=== PATIENT | male | born 1975 | race Caucasian/White ===

== ENCOUNTER 2018-12-27 22:59 | Emergency (ER) | payer BC ==
[2018-12-27] MEDS ORDERED: Ketorolac 60 MG/2 ML SDV IM ONE (23:08)
[2018-12-27] MEDS ORDERED: Aspirin 81 MG Tab.Chew PO ONE (23:08)
--- NOTE | 2018-12-27 23:11 | EDM.PDOC ---
ED HPI GENERAL MEDICAL PROBLEM - General Chief Complaint: Chest Pain Stated Complaint: PT HAS CHEST PAINS Time Seen by Provider: 12/27/18 23:03 - History of Present Illness INITIAL COMMENTS - FREE TEXT/NARRATIVE: HISTORY AND PHYSICAL: History of present illness: The patient is a 43-year-old male with a history of hypertension for which he takes Toprol-XL but has not had it for the last 2-3 weeks and presents with chest pain to the left of the sternum and the upper part of his chest wall that started yesterday. He denies any recent upper respiratory symptoms cough runny nose sore throat or shortness of breath and has had no trauma to the area. The pain does not radiate but sits in that location and it is worse with certain movements or if he touches it. 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 He is very active at work and normally does not have discomfort or issues with activities. He was able to sleep during the day today and when he woke up the pain was still there. He took some Tylenol and it did not help so is here for evaluation. The patient has no significant family history. In the ED he has no associated symptoms of nausea vomiting abdominal pain or shortness of breath. He describes the pain as a sharp pain which is localized to the area he is pointing at Review of systems: As per history of present illness and below otherwise all systems reviewed and negative. Past medical history: As per history of present illness and as reviewed below otherwise noncontributory. Surgical history: As per history of present illness and as reviewed below otherwise noncontributory. Social history: No reported history of drug or alcohol abuse. Family history: As per history of present illness and as reviewed below otherwise noncontributory. Physical exam: HEENT: Atraumatic, normocephalic, negative for conjunctival pallor or scleral icterus, mucous membranes moist, throat clear, neck supple, nontender, trachea midline. Lungs: Clear to auscultation, breath sounds equal bilaterally, chest with tenderness to palpation at the left costochondral margin without defects deformities or crepitus. There is no wheezing stridor or work of breathing Heart: S1S2, regular rate and rhythm no overt murmurs Abdomen: Soft, nondistended, nontender. Negative for masses or hepatosplenomegaly. NABS Pelvis: Stable nontender. Genitourinary: Deferred. Rectal: Deferred. Extremities: Atraumatic, negative for cords or calf pain. Neurovascular unremarkable. No pedal edema Neuro: Awake, alert, oriented. Cranial nerves II through XII unremarkable. Cerebellum unremarkable. Motor and sensory unremarkable throughout. Exam nonfocal. Diagnostics: EKG chest x-ray CBC CMP troponin Therapeutics: Toradol aspirin Patient is feeling improved and is advised for close follow-up. Impression: Left chest wall pain, reproducible, costochondritis Definitive disposition and diagnosis as appropriate pending reevaluation and review of above. Chest Pain Score (Numeric/FACES): 8 - Related Data Allergies Allergy/AdvReac Type Severity Reaction Status Date / Time No Known Allergies Allergy Verified 12/27/18 23:03 Home Meds: Home Meds Metoprolol Succinate [Toprol XL 50mg] 50 mg PO DAILY 12/27/18 [History] ED ROS GENERAL - Review of Systems Review Of Systems: ROS reveals no pertinent complaints other than HPI. ED EXAM, GENERAL - Physical Exam Exam: See Below (See dictation) Course - Vital Signs Last Recorded V/S: Last Vital Signs Temp 36.6 C 12/27/18 23:01 Pulse 86 12/27/18 23:01 Resp 20 12/27/18 23:01 BP 143/97 H 12/27/18 23:01 Pulse Ox 99 12/27/18 23:01 - Orders/Labs/Meds Orders: Active Orders 24 hr Category Date Time Status EKG Documentation Completion [RC] STAT Care 12/27/18 23:08 Active Labs: Laboratory Tests 12/27/18 12/27/18 Range/Units 23:18 23:18 WBC 8.92 (4.0-11.0) K/uL RBC 4.89 (4.50-5.90) M/uL Hgb 15.2 (13.0-17.0) g/dL Hct 42.9 (38.0-50.0) % MCV 87.7 (80.0-98.0) fL MCH 31.1 (27.0-32.0) pg MCHC 35.4 (31.0-37.0) g/dL RDW Std Deviation 41.8 (28.0-62.0) fl RDW Coeff of Gómez 13 (11.0-15.0) % Plt Count 284 (150-400) K/uL MPV 10.10 (7.40-12.00) fL Neut % (Auto) 52.8 (48.0-80.0) % Lymph % (Auto) 31.4 (16.0-40.0) % [place] % (Auto) 12.0 (0.0-15.0) % Eos % (Auto) 3.5 (0.0-7.0) % Baso % (Auto) 0.3 (0.0-1.5) % Neut # (Auto) 4.7 (1.4-5.7) K/uL Lymph # (Auto) 2.8 H (0.6-2.4) K/uL [place] # (Auto) 1.1 H (0.0-0.8) K/uL Eos # (Auto) 0.3 (0.0-0.7) K/uL Baso # (Auto) 0.0 (0.0-0.1) K/uL Nucleated RBC % 0.0 /100WBC Nucleated RBCs # 0 K/uL Sodium 139 (136-148) mmol/L Potassium 3.9 (3.5-5.1) mmol/L Chloride 105 (98-107) mmol/L Carbon Dioxide 23.6 (21.0-32.0) mmol/L BUN 12 (7.0-18.0) mg/dL Creatinine 1.0 (0.8-1.3) mg/dL Est Cr Clr Drug Dosing 103.54 mL/min Estimated GFR (MDRD) > 60.0 ml/min Glucose 115 H (74-106) mg/dL Calcium 8.8 (8.5-10.1) mg/dL Total Bilirubin 0.3 (0.2-1.0) mg/dL AST 21 (15-37) IU/L ALT 39 (14-63) IU/L Alkaline Phosphatase 56 (46-116) U/L Troponin I < 0.050 (0.000-0.056) ng/mL Total Protein 7.3 (6.4-8.2) g/dL Albumin 3.6 (3.4-5.0) g/dL Globulin 3.7 (2.6-4.0) g/dL Albumin/Globulin Ratio 1.0 (0.9-1.6) Meds: Medications Discontinued Medications Generic Name Dose Route Start Last Admin Trade Name Kathe PRN Reason Stop Dose Admin Aspirin 324 mg 12/27/18 23:08 12/27/18 23:16 Aspirin PO 12/27/18 23:09 324 mg ONETIME ONE Administration Ketorolac Tromethamine 60 mg 12/27/18 23:08 12/27/18 23:17 Toradol IM 12/27/18 23:09 60 mg ONETIME ONE Administration Departure - Departure Time of Disposition: 00:27 Disposition: Home, Self-Care 01 Condition: Good Clinical Impression: Chest wall pain - Discharge Information Forms: ED Department Discharge Additional Instructions: The following information is given to patients seen in the emergency department who are being discharged to home. This information is to outline your options for follow-up care. We provide all patients seen in our emergency department with a follow-up referral. The need for follow-up, as well as the timing and circumstances, are variable depending upon the specifics of your emergency department visit. If you don't have a primary care physician on staff, we will provide you with a referral. We always advise you to contact your personal physician following an emergency department visit to inform them of the circumstance of the visit and for follow-up with them and/or the need for any referrals to a consulting specialist. The emergency department will also refer you to a specialist when appropriate. This referral assures that you have the opportunity for followup care with a specialist. All of these measure are taken in an effort to provide you with optimal care, which includes your followup. Under all circumstances we always encourage you to contact your private physician who remains a resource for coordinating your care. When calling for followup care, please make the office aware that this follow-up is from your recent emergency room visit. If for any reason you are refused follow-up, please contact the [facility] emergency department at and ask to speak to the emergency department charge nurse. [facility] Primary care- Internal Medicine and Family [address] [address] Please use [id number] ibuprofen/Motrin for pain as we discussed and try to ice areas after activities and work. Please resume taking your Toprol-XL as a given you a small refill to restart. Please call and schedule a follow-up appointment in the clinic and return to ER as needed and as discussed - My Orders Last 24 Hours: My Active Orders 12/27/18 23:08 EKG Documentation Completion [RC] STAT - Assessment/Plan Last 24 Hours: My Active Orders 12/27/18 23:08 EKG Documentation Completion [RC] STAT
[2018-12-27 23:58] LABS: CHLORIDE,CL 105 mmol/L (98-107); SODIUM,NA 139 mmol/L (136-148)
--- NOTE | 2018-12-28 00:24 | CR ---
INDICATION: Chest pain COMPARISON: None available. FINDINGS: An erect single view of the chest was obtained at 23 23 hours. The lungs are clear. No focal or diffuse infiltrates are present. Incidental note is made of an azygos fissure. The heart is normal in size. The mediastinum is normal in appearance. The osseous structures are normal in appearance for the patient`s age. IMPRESSION: Normal chest single view. Dictated by Tyler Marsh MD @ Dec 28 2018 12:22AM Signed by Dr. Tyler Marsh @ Dec 28 2018 12:23AM
== END 2018-12-28 00:04 | disposition home or self-care (01) ==
LOC: MW.ED 22:59
DX: M94.0 Chondrocostal junction syndrome [Tietze] (principal); Z79.899 Other long term (current) drug therapy
CPT/HCPCS: 36415; 71045; 80053; 84484; 85025; 93005; 96372; 99285; A9270; J1885; 99282

== ENCOUNTER 2018-12-30 22:49 | Observation (INO) | payer BC ==
[2018-12-30] MEDS ORDERED: Sodium Chloride 0.9% 10 ML Syringe FLUSH PRN (23:15)
[2018-12-30] MEDS ORDERED: Ketorolac 30 MG/ML SDV IVPUSH ONE (23:15)
[2018-12-30] MEDS ORDERED: Sodium Chloride 0.9% 2.5 ML Syringe FLUSH PRN (23:15)
[2018-12-30] MEDS ORDERED: Ondansetron 4 MG/2 ML SDV IVPUSH ONE (23:15)
[2018-12-30] MEDS ORDERED: Sodium Chloride 0.9% 1,000 ML IV ONE (23:15)
--- NOTE | 2018-12-30 23:17 | EDM.PDOC ---
ED HPI GENERAL MEDICAL PROBLEM - General Chief Complaint: Back Pain or Injury Stated Complaint: PT HAS BACK AND STOMACH PAIN Time Seen by Provider: 12/30/18 23:10 - History of Present Illness INITIAL COMMENTS - FREE TEXT/NARRATIVE: HISTORY AND PHYSICAL: History of present illness: Patient is a 43-year-old male with no significant GI or history who presents with complaints of bilateral lower back pain that started yesterday and this morning waking up and having the back pain still present but then radiating to bilateral lower abdominal area. He has not had any difficulty initiating a stream urgency frequency dysuria or hematuria and no upper flank pain. He had nausea and vomiting throughout the day and was not able to keep much down but did have an appetite. He did not take his temperature or have a fever that he is aware of and has no chest pain shortness of breath or upper abdominal pain. He says the pain radiates to his testicles but he has not noticed any stress testicular masses or swelling. The patient has no weakness in his legs nor does the back pain or abdominal pain radiate to his legs and has no neurosensory changes in his legs. He has no upper back pain and no midline back pain. The patient took nothing for this discomfort prior to coming here and nothing for the nausea and vomiting. He has had normal bowel movements without diarrhea black or bloody stools. Review of systems: As per history of present illness and below otherwise all systems reviewed and negative. Past medical history: As per history of present illness and as reviewed below otherwise noncontributory. Surgical history: As per history of present illness and as reviewed below otherwise noncontributory. Social history: No reported history of drug or alcohol abuse. Family history: As per history of present illness and as reviewed below otherwise noncontributory. Physical exam: General: Well-developed well-nourished man who is nontoxic and moves very easily in the ED without distress. Vital signs are noted by me HEENT: Atraumatic, normocephalic, pupils reactive, negative for conjunctival pallor or scleral icterus, mucous membranes moist, throat clear, neck supple, nontender, trachea midline. Lungs: Clear to auscultation, breath sounds equal bilaterally, chest nontender. Heart: S1S2, regular, negative for clicks, rubs, or JVD. Abdomen: Soft, nondistended some mild tenderness in the lower abdomen throughout without rebound or guarding and bowel sounds are hypoactive. There is tympany on percussion of the upper abdomen without tenderness. Negative for masses or hepatosplenomegaly. Negative for costovertebral tenderness. Pelvis: Stable nontender. Genitourinary: Normal male with descended testicles bilaterally without any evidence of masses tenderness or swelling Rectal: Deferred. Extremities: Atraumatic, negative for cords or calf pain. Neurovascular unremarkable. Full range of motion of all extremities without defects or deficits Neuro: Awake, alert, oriented. Cranial nerves II through XII unremarkable. Cerebellum unremarkable. Motor and sensory unremarkable throughout. Exam nonfocal. Back: There are no midline step-offs in his defects of the thoracic or lumbar spine no CVA tenderness and no posterior pelvis tenderness. On palpation of the paraspinal musculature I cannot reproduce the pain. Diagnostics: CBC CMP amylase lipase UA with reflex CT scan abdomen and pelvis Therapeutics: IV fluids Toradol Zofran Patient is resting comfortably and says his nausea is much improved and his pain is also improved. I discussed all testing results with him and significant other at bedside and I discussed the CT scan findings and labs with Dr. Arguello at 1 AM as well as with Dr. Worley our hospitalist at 1:[address] scan is abnormal with the free fluid Dr. Arguello recommends observation and he will be on consult if Dr. Worley would like that. Dr. Worley states he would like Dr. Arguello on consult and he will admit him as an observation. I've written for maintenance IV fluids and the patient is agreeable they're both aware of the lab abnormalities and the patient's clinical state and presentation Impression: Lower back and lower abdominal pain with abnormal CT etiology unclear, paracentral disc disease L4-L5 stable, diminished renal function etiology unclear Definitive disposition and diagnosis as appropriate pending reevaluation and review of above. low back;low abdomen Pain Score (Numeric/FACES): 6 - Related Data Allergies Allergy/AdvReac Type Severity Reaction Status Date / Time No Known Allergies Allergy Verified 12/30/18 23:08 Home Meds: Home Meds Metoprolol Succinate [Toprol XL 50mg] 50 mg PO DAILY 12/27/18 [History] Past Medical History Cardiovascular History: Reports: Hypertension Neurological History: Reports: Concussion Psychiatric History: Reports: Panic Attack - Infectious Disease History Infectious Disease History: Reports: Chicken Pox Social & Family History - Family History Family Medical History: Noncontributory - Tobacco Use Smoking Status *Q: Current Every Day Smoker Years of Tobacco use: 20 Packs/Tins Daily: 1 - Recreational Drug Use Recreational Drug Use: No ED ROS GENERAL - Review of Systems Review Of Systems: ROS reveals no pertinent complaints other than HPI. ED EXAM, GENERAL - Physical Exam Exam: See Below (see Dictation) Course - Vital Signs Last Recorded V/S: Last Vital Signs Temp 37.1 C 12/30/18 23:00 Pulse 67 12/30/18 23:00 Resp 18 12/30/18 23:00 BP 178/104 H 12/30/18 23:00 Pulse Ox 96 12/30/18 23:00 - Orders/Labs/Meds Orders: Active Orders 24 hr Category Date Time Status Patient Status [ADT] Stat ADT 12/31/18 01:15 Ordered Notify Provider Consults [RC] ASDIRECTED Care 12/31/18 01:15 Ordered Consult to Physician [CONS] Stat Cons 12/31/18 01:15 Ordered Sodium Chloride 0.9% @ 150 MLS/HR (1,000ml) Med 12/31/18 01:15 Ordered Sodium Chloride 0.9% [Normal Saline] 1,000 ml IV ASDIRECTED Sodium Chloride 0.9% [Saline Flush] Med 12/30/18 23:15 Active 10 ml FLUSH ASDIRECTED PRN Sodium Chloride 0.9% [Saline Flush] Med 12/30/18 23:15 Active 2.5 ml FLUSH ASDIRECTED PRN Saline Lock Insert [OM.PC] Stat Oth 12/30/18 23:14 Ordered Medication Orders Sodium Chloride (Saline Flush) 10 ml FLUSH ASDIRECTED PRN PRN Reason: Keep Vein Open Sodium Chloride (Saline Flush) 2.5 ml FLUSH ASDIRECTED PRN PRN Reason: Keep Vein Open Labs: Laboratory Tests 12/30/18 12/30/18 12/30/18 Range/Units 22:23 23:22 23:22 WBC 12.94 H (4.0-11.0) K/uL RBC 4.96 (4.50-5.90) M/uL Hgb 15.3 (13.0-17.0) g/dL Hct 43.6 (38.0-50.0) % MCV 87.9 (80.0-98.0) fL MCH 30.8 (27.0-32.0) pg MCHC 35.1 (31.0-37.0) g/dL RDW Std Deviation 41.3 (28.0-62.0) fl RDW Coeff of Gómez 13 (11.0-15.0) % Plt Count 274 (150-400) K/uL MPV 10.50 (7.40-12.00) fL Neut % (Auto) 80.3 H (48.0-80.0) % Lymph % (Auto) 7.7 L (16.0-40.0) % [place] % (Auto) 11.7 (0.0-15.0) % Eos % (Auto) 0.1 (0.0-7.0) % Baso % (Auto) 0.2 (0.0-1.5) % Neut # (Auto) 10.4 H (1.4-5.7) K/uL Lymph # (Auto) 1.0 (0.6-2.4) K/uL [place] # (Auto) 1.5 H (0.0-0.8) K/uL Eos # (Auto) 0.0 (0.0-0.7) K/uL Baso # (Auto) 0.0 (0.0-0.1) K/uL Nucleated RBC % 0.0 /100WBC Nucleated RBCs # 0 K/uL Sodium 144 (136-148) mmol/L Potassium 3.7 (3.5-5.1) mmol/L Chloride 106 (98-107) mmol/L Carbon Dioxide 24.7 (21.0-32.0) mmol/L BUN 14 (7.0-18.0) mg/dL Creatinine 2.4 H (0.8-1.3) mg/dL Est Cr Clr Drug Dosing 43.14 mL/min Estimated GFR (MDRD) 30.0 ml/min Glucose 124 H (74-106) mg/dL Calcium 8.8 (8.5-10.1) mg/dL Total Bilirubin 0.5 (0.2-1.0) mg/dL AST 22 (15-37) IU/L ALT 27 (14-63) IU/L Alkaline Phosphatase 53 (46-116) U/L Total Protein 7.3 (6.4-8.2) g/dL Albumin 3.4 (3.4-5.0) g/dL Globulin 3.9 (2.6-4.0) g/dL Albumin/Globulin Ratio 0.9 (0.9-1.6) Amylase 30 (25-115) U/L Lipase 95 (73-393) U/L Urine Color YELLOW Urine Appearance CLEAR Urine pH 6.0 (5.0-8.0) Ur Specific [place] 1.010 (1.001-1.035) Urine Protein 100 H (NEGATIVE) mg/dL Urine Glucose (UA) NEGATIVE (NEGATIVE) mg/dL Urine Ketones NEGATIVE (NEGATIVE) mg/dL Urine Occult Blood SMALL H (NEGATIVE) Urine Nitrite NEGATIVE (NEGATIVE) Urine Bilirubin NEGATIVE (NEGATIVE) Urine Urobilinogen 0.2 (<2.0) EU/dL Ur Leukocyte Esterase NEGATIVE (NEGATIVE) Urine RBC 0-2 (0-2/HPF) Urine WBC 0-3 (0-5/HPF) Ur Epithelial Cells RARE (NONE-FEW) Urine Bacteria FEW (NEGATIVE) Urine Mucus LIGHT (NONE-MOD) Meds: Medications Generic Name Dose Route Start Last Admin Trade Name Freq PRN Reason Stop Dose Admin Sodium Chloride 10 ml 12/30/18 23:15 Saline Flush FLUSH ASDIRECTED PRN Keep Vein Open Sodium Chloride 2.5 ml 12/30/18 23:15 Saline Flush FLUSH ASDIRECTED PRN Keep Vein Open Discontinued Medications Generic Name Dose Route Start Last Admin Trade Name Freq PRN Reason Stop Dose Admin Sodium Chloride 1,000 mls @ 999 mls/hr 12/30/18 23:15 12/30/18 23:24 Normal Saline IV 12/31/18 00:15 999 mls/hr STAT ONE Administration Ketorolac Tromethamine 30 mg 12/30/18 23:15 12/30/18 23:26 Toradol IVPUSH 12/30/18 23:16 30 mg ONETIME ONE Administration Ondansetron HCl 4 mg 12/30/18 23:15 12/30/18 23:25 Zofran IVPUSH 12/30/18 23:16 4 mg ONETIME ONE Administration Departure - Departure Time of Disposition: 01:18 Disposition: Refer to Observation Condition: Good Clinical Impression: Abnormal CT scan, Decreased renal function Abdominal pain Qualifiers: Abdominal location: lower abdomen, unspecified Qualified Code(s): R10.30 - Lower abdominal pain, unspecified - Discharge Information Referrals: PCP,None [Primary Care Provider] - Forms: ED Department Discharge - My Orders Last 24 Hours: My Active Orders 12/30/18 23:14 Saline Lock Insert [OM.PC] Stat 12/30/18 23:15 Sodium Chloride 0.9% [Saline Flush] 10 ml FLUSH ASDIRECTED PRN Sodium Chloride 0.9% [Saline Flush] 2.5 ml FLUSH ASDIRECTED PRN 12/31/18 01:15 Patient Status [ADT] Stat Notify Provider Consults [RC] ASDIRECTED Consult to Physician [CONS] Stat Sodium Chloride 0.9% @ 150 MLS/HR (1,000ml) Sodium Chloride 0.9% [Normal Saline ] 1,000 ml IV ASDIRECTED - Assessment/Plan Last 24 Hours: My Active Orders 12/30/18 23:14 Saline Lock Insert [OM.PC] Stat 12/30/18 23:15 Sodium Chloride 0.9% [Saline Flush] 10 ml FLUSH ASDIRECTED PRN Sodium Chloride 0.9% [Saline Flush] 2.5 ml FLUSH ASDIRECTED PRN 12/31/18 01:15 Patient Status [ADT] Stat Notify Provider Consults [RC] ASDIRECTED Consult to Physician [CONS] Stat Sodium Chloride 0.9% @ 150 MLS/HR (1,000ml) Sodium Chloride 0.9% [Normal Saline ] 1,000 ml IV ASDIRECTED
--- NOTE | 2018-12-31 00:59 | CT ---
INDICATION: Low back pain. Nausea and vomiting TECHNIQUE: CT abdomen and pelvis without contrast. COMPARISON: None available FINDINGS: Lower chest: A calcified right lower lobe granuloma. Liver: Unremarkable. Spleen: Upper limits of normal splenic size. A punctate calcified splenic granuloma. Pancreas: Unremarkable. Gallbladder and bile ducts: Mildly increased attenuation within the gallbladder could represent sludge. Adrenal glands: Unremarkable. Kidneys: No hydronephrosis or discrete urolithiasis. Apparent slight urothelial prominence at the UPJ`s. GI tract: Unremarkable. Appendix is normal. Vascular structures: Unremarkable. Lymph nodes: Unremarkable. Miscellaneous: Small to moderate pelvic free fluid. No free air. Pelvic Organs: Unremarkable. Bones: A left paracentral disc protrusion at L4-5. IMPRESSION: No obstructive uropathy or discrete urolithiasis. Apparent slight urothelial prominence at the UPJ`s. Correlate with urinalysis to exclude a UTI. No evidence of appendicitis, diverticulitis or bowel obstruction. Small to moderate pelvic free fluid. A left paracentral disc protrusion at L4-5. Old granulomatous disease. Dictated by Mirza John MD @ 12/31/2018 12:57:52 AM Please note that all CT scans at this facility use dose modulation, iterative reconstruction, and/or weight-based dosing when appropriate to reduce radiation dose to as low as reasonably achievable. Dictated by: Mirza John MD @ 12/31/2018 00:58:00 (Electronically Signed)
[2018-12-31] MEDS ORDERED: Sodium Chloride 0.9% 1,000 ML IV SCH (01:15)
[2018-12-31] MEDS ORDERED: Sodium Chloride 0.9% 2.5 ML Syringe FLUSH PRN (02:02)
[2018-12-31] MEDS ORDERED: Sodium Chloride 0.9% 10 ML Syringe FLUSH PRN (02:02)
[2018-12-31] MEDS ORDERED: Morphine 2 MG/ML Syringe IVPUSH PRN (02:03)
[2018-12-31] MEDS ORDERED: Acetaminophen 325 MG Tab PO PRN (02:03)
[2018-12-31] MEDS ORDERED: oxyCODONE 5 MG Tab PO PRN (02:03)
[2018-12-31] MEDS ORDERED: Ondansetron 4 MG/2 ML SDV IVPUSH PRN (02:04)
--- NOTE | 2018-12-31 06:54 | PCM.HP ---
H&P History of Present Illness - General Date of Service: 12/31/18 Admit Problem/Dx: Admission Diagnosis/Problem Admission Diagnosis/Problem Abdominal pain Source of Information: Patient History Limitations: Reports: No Limitations - History of Present Illness Initial Comments - Free Text/Narative: The patient is a 43-year-old gentleman who had presented to the emergency department both on December 28, 2018 and December 30, 2018 with a complaint of bilateral lower abdominal pain. The patient had denied any difficulties with urination, hematuria or dysuria. He also had denied any fever or chills. The patient says that he has had pain that radiates from his lower abdomen into his testicles. The patient also has had persistent nausea and vomiting. The patient has had no specific aggravating or relieving factors other than pain medications made his abdominal and back pain better. CT scan through the emergency department had revealed minimal amount of free pelvic fluid. The patient has been in relatively good health otherwise. He only takes medications for hypertension. The patient had medication for his pain in his pain is much less today. Onset of Symptoms: Reports: Sudden Duration of Symptoms: Reports: Day(s): Location: Reports: Abdomen, Back Quality: Reports: Stabbing, Throbbing Severity: Moderate Improves with: Reports: Rest Worsens with: Reports: Movement Associated Symptoms: Reports: Nausea/Vomiting low back;low abdomen Pain Score (Numeric/FACES): 2 - Related Data Allergies/Adverse Reactions: Allergies Allergy/AdvReac Type Severity Reaction Status Date / Time No Known Allergies Allergy Verified 12/30/18 23:08 Home Medications: Home Meds Metoprolol Succinate [Toprol XL 50mg] 50 mg PO DAILY 12/27/18 [History] Past Medical History HEENT History: Reports: None Cardiovascular History: Reports: Hypertension Respiratory History: Reports: None Gastrointestinal History: Reports: None Genitourinary History: Reports: None Musculoskeletal History: Reports: None Neurological History: Reports: Concussion Psychiatric History: Reports: Panic Attack Endocrine/Metabolic History: Reports: None Hematologic History: Reports: None Immunologic History: Reports: None Oncologic (Cancer) History: Reports: None Dermatologic History: Reports: None - Infectious Disease History Infectious Disease History: Reports: Chicken Pox Social & Family History - Family History Family Medical History: Noncontributory - Tobacco Use Smoking Status *Q: Current Every Day Smoker Years of Tobacco use: 20 Packs/Tins Daily: 0.5 Used Tobacco, but Quit: No Second Hand Smoke Exposure: No - Caffeine Use Caffeine Use: Reports: Coffee, Soda - Alcohol Use Days Per Week of Alcohol Use: 6 Number of Drinks Per Day: 2 Total Drinks Per Week: 12 Date of Last Drink: 12/30/18 - Recreational Drug Use Recreational Drug Use: No H&P Review of Systems - Review of Systems: Review Of Systems: See Below General: Reports: No Symptoms HEENT: Reports: No Symptoms Pulmonary: Reports: No Symptoms Cardiovascular: Reports: No Symptoms Gastrointestinal: Reports: Abdominal Pain, Nausea, Vomiting Genitourinary: Reports: No Symptoms Musculoskeletal: Reports: Back Pain Skin: Reports: No Symptoms Psychiatric: Reports: No Symptoms Neurological: Reports: No Symptoms Hematologic/Lymphatic: Reports: No Symptoms Immunologic: Reports: No Symptoms Exam - Exam Exam: See Below - Vital Signs Vital Signs: Last Vital Signs Temp 36.5 C 12/31/18 04:00 Pulse 58 L 12/31/18 04:00 Resp 14 12/31/18 04:00 BP 115/74 12/31/18 04:00 Pulse Ox 95 12/31/18 04:00 Weight: 87.203 kg - Exam Quality Assessment: No: Supplemental Oxygen General: Alert, Oriented, Cooperative HEENT: Conjunctiva Clear, EACs Clear, EOMI, Hearing Intact, Mucosa Moist & [place] , PERRLA Neck: Supple, Trachea Midline, 2 Lungs: Clear to Auscultation, Normal Respiratory Effort Cardiovascular: Regular Rate, Regular Rhythm GI/Abdominal Exam: Normal Bowel Sounds, Soft, No Organomegaly, No Distention, Tender (Suprapubic area) (Male) Exam: Deferred Rectal (Males) Exam: Deferred Back Exam: Normal Inspection, Full Range of Motion, NT Extremities: Normal Inspection, Normal Range of Motion, No Pedal Edema Skin: Warm, Dry, Intact Neurological: Cranial Nerves Intact, Normal Gait Neuro Extensive - Mental Status: Alert, Oriented x3 Psychiatric: Alert, Normal Affect, Normal Mood - Patient Data Lab Results Last 24 hrs: Laboratory Results - last 24 hr 12/30/18 12/30/18 12/30/18 Range/Units 22:23 23:22 23:22 WBC 12.94 H (4.0-11.0) K/uL RBC 4.96 (4.50-5.90) M/uL Hgb 15.3 (13.0-17.0) g/dL Hct 43.6 (38.0-50.0) % MCV 87.9 (80.0-98.0) fL MCH 30.8 (27.0-32.0) pg MCHC 35.1 (31.0-37.0) g/dL RDW Std Deviation 41.3 (28.0-62.0) fl RDW Coeff of Gómez 13 (11.0-15.0) % Plt Count 274 (150-400) K/uL MPV 10.50 (7.40-12.00) fL Neut % (Auto) 80.3 H (48.0-80.0) % Lymph % (Auto) 7.7 L (16.0-40.0) % [place] % (Auto) 11.7 (0.0-15.0) % Eos % (Auto) 0.1 (0.0-7.0) % Baso % (Auto) 0.2 (0.0-1.5) % Neut # (Auto) 10.4 H (1.4-5.7) K/uL Lymph # (Auto) 1.0 (0.6-2.4) K/uL [place] # (Auto) 1.5 H (0.0-0.8) K/uL Eos # (Auto) 0.0 (0.0-0.7) K/uL Baso # (Auto) 0.0 (0.0-0.1) K/uL Nucleated RBC % 0.0 /100WBC Nucleated RBCs # 0 K/uL Sodium 144 (136-148) mmol/L Potassium 3.7 (3.5-5.1) mmol/L Chloride 106 (98-107) mmol/L Carbon Dioxide 24.7 (21.0-32.0) mmol/L BUN 14 (7.0-18.0) mg/dL Creatinine 2.4 H (0.8-1.3) mg/dL Est Cr Clr Drug Dosing 43.14 mL/min Estimated GFR (MDRD) 30.0 ml/min Glucose 124 H (74-106) mg/dL Calcium 8.8 (8.5-10.1) mg/dL Total Bilirubin 0.5 (0.2-1.0) mg/dL AST 22 (15-37) IU/L ALT 27 (14-63) IU/L Alkaline Phosphatase 53 (46-116) U/L Total Protein 7.3 (6.4-8.2) g/dL Albumin 3.4 (3.4-5.0) g/dL Globulin 3.9 (2.6-4.0) g/dL Albumin/Globulin Ratio 0.9 (0.9-1.6) Amylase 30 (25-115) U/L Lipase 95 (73-393) U/L Urine Color YELLOW Urine Appearance CLEAR Urine pH 6.0 (5.0-8.0) Ur Specific [place] 1.010 (1.001-1.035) Urine Protein 100 H (NEGATIVE) mg/dL Urine Glucose (UA) NEGATIVE (NEGATIVE) mg/dL Urine Ketones NEGATIVE (NEGATIVE) mg/dL Urine Occult Blood SMALL H (NEGATIVE) Urine Nitrite NEGATIVE (NEGATIVE) Urine Bilirubin NEGATIVE (NEGATIVE) Urine Urobilinogen 0.2 (<2.0) EU/dL Ur Leukocyte Esterase NEGATIVE (NEGATIVE) Urine RBC 0-2 (0-2/HPF) Urine WBC 0-3 (0-5/HPF) Ur Epithelial Cells RARE (NONE-FEW) Urine Bacteria FEW (NEGATIVE) Urine Mucus LIGHT (NONE-MOD) 12/31/18 12/31/18 Range/Units 05:20 05:20 WBC 9.64 (4.0-11.0) K/uL RBC 4.52 (4.50-5.90) M/uL Hgb 13.6 (13.0-17.0) g/dL Hct 40.3 (38.0-50.0) % MCV 89.2 (80.0-98.0) fL MCH 30.1 (27.0-32.0) pg MCHC 33.7 (31.0-37.0) g/dL RDW Std Deviation 42.4 (28.0-62.0) fl RDW Coeff of Gómez 13 (11.0-15.0) % Plt Count 238 (150-400) K/uL MPV 10.40 (7.40-12.00) fL Neut % (Auto) 64.7 (48.0-80.0) % Lymph % (Auto) 21.4 (16.0-40.0) % [place] % (Auto) 13.4 (0.0-15.0) % Eos % (Auto) 0.4 (0.0-7.0) % Baso % (Auto) 0.1 (0.0-1.5) % Neut # (Auto) 6.2 H (1.4-5.7) K/uL Lymph # (Auto) 2.1 (0.6-2.4) K/uL [place] # (Auto) 1.3 H (0.0-0.8) K/uL Eos # (Auto) 0.0 (0.0-0.7) K/uL Baso # (Auto) 0.0 (0.0-0.1) K/uL Nucleated RBC % 0.0 /100WBC Nucleated RBCs # 0 K/uL Sodium 144 (136-148) mmol/L Potassium 3.4 L (3.5-5.1) mmol/L Chloride 106 (98-107) mmol/L Carbon Dioxide 26.5 (21.0-32.0) mmol/L BUN 14 (7.0-18.0) mg/dL Creatinine 2.2 H (0.8-1.3) mg/dL Est Cr Clr Drug Dosing 47.06 mL/min Estimated GFR (MDRD) 33.2 ml/min Glucose 101 (74-106) mg/dL Calcium 8.0 L (8.5-10.1) mg/dL Total Bilirubin (0.2-1.0) mg/dL AST (15-37) IU/L ALT (14-63) IU/L Alkaline Phosphatase (46-116) U/L Total Protein (6.4-8.2) g/dL Albumin (3.4-5.0) g/dL Globulin (2.6-4.0) g/dL Albumin/Globulin Ratio (0.9-1.6) Amylase (25-115) U/L Lipase (73-393) U/L Urine Color Urine Appearance Urine pH (5.0-8.0) Ur Specific [place] (1.001-1.035) Urine Protein (NEGATIVE) mg/dL Urine Glucose (UA) (NEGATIVE) mg/dL Urine Ketones (NEGATIVE) mg/dL Urine Occult Blood (NEGATIVE) Urine Nitrite (NEGATIVE) Urine Bilirubin (NEGATIVE) Urine Urobilinogen (<2.0) EU/dL Ur Leukocyte Esterase (NEGATIVE) Urine RBC (0-2/HPF) Urine WBC (0-5/HPF) Ur Epithelial Cells (NONE-FEW) Urine Bacteria (NEGATIVE) Urine Mucus (NONE-MOD) Result Diagrams: 12/31/18 05:20 12/31/18 05:20 - Problem List (1) HTN (hypertension) SNOMED Code(s): 84450125 ICD Code: I10 - ESSENTIAL (PRIMARY) HYPERTENSION Status: Chronic Priority : High Current Visit: Yes Qualifiers: Hypertension type: essential hypertension Qualified Code(s): I10 - Essential (primary) hypertension (2) Abdominal pain SNOMED Code(s): 84794610 ICD Code: R10.9 - UNSPECIFIED ABDOMINAL PAIN Status: Acute Priority: High Current Visit: Yes Qualifiers: Abdominal location: lower abdomen, unspecified Qualified Code(s): R10.30 - Lower abdominal pain, unspecified (3) Decreased renal function SNOMED Code(s): 80496681 ICD Code: N28.9 - DISORDER OF KIDNEY AND URETER, UNSPECIFIED Status: Acute Priority: High Current Visit: Yes (4) Renal insufficiency, mild SNOMED Code(s): 404421149 ICD Code: N28.9 - DISORDER OF KIDNEY AND URETER, UNSPECIFIED Status: Acute Priority: High Current Visit: Yes Problem List Initiated/Reviewed/Updated: Yes Orders Last 24hrs: Active Orders 24 hr Category Date Time Status Admission Status [Patient Status] [ADT] Routine ADT 12/31/18 02:01 Active Patient Status [ADT] Stat ADT 12/31/18 01:15 Active Notify Provider Consults [RC] ASDIRECTED Care 12/31/18 01:15 Active Consult to Physician [CONS] Stat Cons 12/31/18 01:15 Active Regular Diet [DIET] Diet 12/31/18 Breakfast Active Acetaminophen [Tylenol] Med 12/31/18 02:03 Active 650 mg PO Q6H PRN Morphine Med 12/31/18 02:03 Active 2 mg IVPUSH Q2H PRN Ondansetron [Zofran] Med 12/31/18 02:04 Active 4 mg IVPUSH Q6H PRN Sodium Chloride 0.9% [Saline Flush] Med 12/30/18 23:15 Active 10 ml FLUSH ASDIRECTED PRN Sodium Chloride 0.9% [Saline Flush] Med 12/31/18 02:02 Active 10 ml FLUSH ASDIRECTED PRN Sodium Chloride 0.9% [Saline Flush] Med 12/30/18 23:15 Active 2.5 ml FLUSH ASDIRECTED PRN Sodium Chloride 0.9% [Saline Flush] Med 12/31/18 02:02 Active 2.5 ml FLUSH ASDIRECTED PRN oxyCODONE Med 12/31/18 02:03 Active 5 mg PO Q4H PRN Convert IV to Saline Lock [OM.PC] Routine Ot 12/31/18 02:02 Ordered Saline Lock Insert [OM.PC] Stat Ot 12/30/18 23:14 Ordered Medication Orders Acetaminophen (Tylenol) 650 mg PO Q6H PRN PRN Reason: Pain (mild 1-3) Morphine Sulfate (Morphine) 2 mg IVPUSH Q2H PRN PRN Reason: Pain (severe 7-10) Ondansetron HCl (Zofran) 4 mg IVPUSH Q6H PRN PRN Reason: Nausea/Vomiting Oxycodone HCl (Oxycodone) 5 mg PO Q4H PRN PRN Reason: Pain (moderate 4-6) Sodium Chloride (Saline Flush) 10 ml FLUSH ASDIRECTED PRN PRN Reason: Keep Vein Open Sodium Chloride (Saline Flush) 2.5 ml FLUSH ASDIRECTED PRN PRN Reason: Keep Vein Open Sodium Chloride (Saline Flush) 10 ml FLUSH ASDIRECTED PRN PRN Reason: Keep Vein Open Sodium Chloride (Saline Flush) 2.5 ml FLUSH ASDIRECTED PRN PRN Reason: Keep Vein Open Assessment/Plan Comment:: The patient is a 43-year-old gentleman who had been admitted secondary to lower abdominal and back pain. The patient did have a somewhat abnormal CT scan which did show minimal free pelvic fluid. This is nonspecific as the patient has improved somewhat. There was also noted that he had minor punctate calcifications in his prostate gland. The patient will be given a referral to urology for further outwork as an outpatient. There is no evidence of urinary tract infection. The patient says that his nausea and vomiting has improved significantly and he previously had been dehydrated and was noted that upon admission he had rise in his creatinine which indicates likely acute renal insufficiency. The patient will be monitored for his ability to tolerate his diet. If the patient has improved significantly he will be appropriate for discharge home later today.
--- NOTE | 2018-12-31 17:00 | PCM.DCSUM1 ---
Discharge Summary - Hospital Course HPI Initial Comments: The patient was admitted due to lower abdominal and lower back pain. CT scan showed pelvic free fluid. Diagnosis: Stroke: No - Discharge Data Discharge Date: 12/31/18 Discharge Disposition: Home, Self-Care 01 Condition: Good - Discharge Diagnosis/Problem(s) (1) HTN (hypertension) SNOMED Code(s): 84538580 ICD Code: I10 - ESSENTIAL (PRIMARY) HYPERTENSION Status: Chronic Priority : High Qualifiers: Hypertension type: essential hypertension Qualified Code(s): I10 - Essential (primary) hypertension (2) Abdominal pain SNOMED Code(s): 53419726 ICD Code: R10.9 - UNSPECIFIED ABDOMINAL PAIN Status: Acute Priority: High Qualifiers: Abdominal location: lower abdomen, unspecified Qualified Code(s): R10.30 - Lower abdominal pain, unspecified (3) Decreased renal function SNOMED Code(s): 62282413 ICD Code: N28.9 - DISORDER OF KIDNEY AND URETER, UNSPECIFIED Status: Acute Priority: High (4) Renal insufficiency, mild SNOMED Code(s): 865758527 ICD Code: N28.9 - DISORDER OF KIDNEY AND URETER, UNSPECIFIED Status: Acute Priority: High (5) Bacterial prostatitis SNOMED Code(s): 496114125330848 ICD Code: N41.8 - OTHER INFLAMMATORY DISEASES OF PROSTATE Status: Acute - Patient Summary/Data Hospital Course: The patient is a 43-year-old gentleman who had presented to the emergency department both on December 28, 2018 and December 30, 2018 with a complaint of bilateral lower abdominal pain. The patient had denied any difficulties with urination, hematuria or dysuria. He also had denied any fever or chills. The patient says that he has had pain that radiates from his lower abdomen into his testicles. The patient also has had persistent nausea and vomiting. The patient has had no specific aggravating or relieving factors other than pain medications made his abdominal and back pain better. CT scan through the emergency department had revealed minimal amount of free pelvic fluid. The surgeon had been consulted with regards to this informally consult this this was not due to any abdominal abnormality. The patient was also noted to have calcifications in his prostate. During the short course of hospitalization the patient had continued to improve.The patient had been placed on ciprofloxacin 500 mg by mouth to twice a day as a concern for chronic prostatitis. He been referred to urology. He also been given a prescription for tramadol. Tramadol is at 50 mg by mouth every 6 hours as needed for pain. The patient had been tolerating his diet as recommended to continue with the diet as tolerated. He is also to have activity as tolerated. I've recommended further the patient follow-up with a primary care physician. The patient had been hemodynamically stable and he is discharged from acute hospitalization with the recommendations listed above. - Patient Instructions Diet: Heart Healthy Diet Activity: As Tolerated Driving: May Drive Today - Discharge Plan *PRESCRIPTION DRUG MONITORING PROGRAM REVIEWED*: No *COPY OF PRESCRIPTION DRUG MONITORING REPORT IN PATIENT LYN: No Prescriptions/Med Rec: Ciprofloxacin HCl [Cipro] 500 mg PO BID #14 tablet traMADol [Ultram] 50 mg PO Q6H PRN #21 tab PRN Reason: Abdominal Pain Home Medications: Home Meds Metoprolol Succinate [Toprol XL 50mg] 50 mg PO DAILY 12/27/18 [History] Ciprofloxacin HCl [Cipro] 500 mg PO BID #14 tablet 12/31/18 [Rx] traMADol [Ultram] 50 mg PO Q6H PRN #21 tab 12/31/18 [Rx] Oxygen Therapy Mode: Room Air Patient Handouts: Tramadol tablets, Prostatitis, [id number], Ciprofloxacin tablets Referrals: Tucker Watts MD [Resident] - (Please call Thursday, January 03 and schedule a follow up appointment for 1 week.) Mindi Howard MD [Physician] - (Please call on January 03 and schedule a follow up appointment as soon as possible.) - Discharge Summary/Plan Comment DC Time >30 min.: Yes - General Info Date of Service: 01/01/19 Admission Dx/Problem (Free Text: Admission Diagnosis/Problem Admission Diagnosis/Problem Abdominal pain Functional Status: Reports: Pain Controlled - Review of Systems General: Reports: No Symptoms HEENT: Reports: No Symptoms Pulmonary: Reports: No Symptoms Cardiovascular: Reports: No Symptoms Gastrointestinal: Reports: No Symptoms Genitourinary: Reports: No Symptoms Musculoskeletal: Reports: No Symptoms Skin: Reports: No Symptoms Neurological: Reports: No Symptoms Psychiatric: Reports: No Symptoms - Patient Data Vitals - Most Recent: Last Vital Signs Temp 37.4 C 12/31/18 16:00 Pulse 65 12/31/18 16:00 Resp 18 12/31/18 16:00 BP 169/99 H 12/31/18 16:00 Pulse Ox 98 12/31/18 16:00 Weight - Most Recent: 87.203 kg I&O - Last 24 hours: Intake & Output 12/31/18 12/31/18 12/31/18 06:59 14:59 22:59 Intake Total 450 1540 Output Total 350 400 Balance 100 1140 Lab Results - Last 24 hrs: Laboratory Results - last 24 hr 12/30/18 12/30/18 12/30/18 Range/Units 22:23 23:22 23:22 WBC 12.94 H (4.0-11.0) K/uL RBC 4.96 (4.50-5.90) M/uL Hgb 15.3 (13.0-17.0) g/dL Hct 43.6 (38.0-50.0) % MCV 87.9 (80.0-98.0) fL MCH 30.8 (27.0-32.0) pg MCHC 35.1 (31.0-37.0) g/dL RDW Std Deviation 41.3 (28.0-62.0) fl RDW Coeff of Góme[place] 13 (11.0-15.0) % Plt Count 274 (150-400) K/uL MPV 10.50 (7.40-12.00) fL Neut % (Auto) 80.3 H (48.0-80.0) % Lymph % (Auto) 7.7 L (16.0-40.0) % [place] % (Auto) 11.7 (0.0-15.0) % Eos % (Auto) 0.1 (0.0-7.0) % Baso % (Auto) 0.2 (0.0-1.5) % Neut # (Auto) 10.4 H (1.4-5.7) K/uL Lymph # (Auto) 1.0 (0.6-2.4) K/uL [place] # (Auto) 1.5 H (0.0-0.8) K/uL Eos # (Auto) 0.0 (0.0-0.7) K/uL Baso # (Auto) 0.0 (0.0-0.1) K/uL Nucleated RBC % 0.0 /100WBC Nucleated RBCs # 0 K/uL Sodium 144 (136-148) mmol/L Potassium 3.7 (3.5-5.1) mmol/L Chloride 106 (98-107) mmol/L Carbon Dioxide 24.7 (21.0-32.0) mmol/L BUN 14 (7.0-18.0) mg/dL Creatinine 2.4 H (0.8-1.3) mg/dL Est Cr Clr Drug Dosing 43.14 mL/min Estimated GFR (MDRD) 30.0 ml/min Glucose 124 H (74-106) mg/dL Calcium 8.8 (8.5-10.1) mg/dL Total Bilirubin 0.5 (0.2-1.0) mg/dL AST 22 (15-37) IU/L ALT 27 (14-63) IU/L Alkaline Phosphatase 53 (46-116) U/L Total Protein 7.3 (6.4-8.2) g/dL Albumin 3.4 (3.4-5.0) g/dL Globulin 3.9 (2.6-4.0) g/dL Albumin/Globulin Ratio 0.9 (0.9-1.6) Amylase 30 (25-115) U/L Lipase 95 (73-393) U/L Urine Color YELLOW Urine Appearance CLEAR Urine pH 6.0 (5.0-8.0) Ur Specific [place] 1.010 (1.001-1.035) Urine Protein 100 H (NEGATIVE) mg/dL Urine Glucose (UA) NEGATIVE (NEGATIVE) mg/dL Urine Ketones NEGATIVE (NEGATIVE) mg/dL Urine Occult Blood SMALL H (NEGATIVE) Urine Nitrite NEGATIVE (NEGATIVE) Urine Bilirubin NEGATIVE (NEGATIVE) Urine Urobilinogen 0.2 (<2.0) EU/dL Ur Leukocyte Esterase NEGATIVE (NEGATIVE) Urine RBC 0-2 (0-2/HPF) Urine WBC 0-3 (0-5/HPF) Ur Epithelial Cells RARE (NONE-FEW) Urine Bacteria FEW (NEGATIVE) Urine Mucus LIGHT (NONE-MOD) 12/31/18 12/31/18 12/31/18 Range/Units 05:20 05:20 14:39 WBC 9.64 (4.0-11.0) K/uL RBC 4.52 (4.50-5.90) M/uL Hgb 13.6 (13.0-17.0) g/dL Hct 40.3 (38.0-50.0) % MCV 89.2 (80.0-98.0) fL MCH 30.1 (27.0-32.0) pg MCHC 33.7 (31.0-37.0) g/dL RDW Std Deviation 42.4 (28.0-62.0) fl RDW Coeff of [place] 13 (11.0-15.0) % Plt Count 238 (150-400) K/uL MPV 10.40 (7.40-12.00) fL Neut % (Auto) 64.7 (48.0-80.0) % Lymph % (Auto) 21.4 (16.0-40.0) % [place] % (Auto) 13.4 (0.0-15.0) % Eos % (Auto) 0.4 (0.0-7.0) % Baso % (Auto) 0.1 (0.0-1.5) % Neut # (Auto) 6.2 H (1.4-5.7) K/uL Lymph # (Auto) 2.1 (0.6-2.4) K/uL [place] # (Auto) 1.3 H (0.0-0.8) K/uL Eos # (Auto) 0.0 (0.0-0.7) K/uL Baso # (Auto) 0.0 (0.0-0.1) K/uL Nucleated RBC % 0.0 /100WBC Nucleated RBCs # 0 K/uL Sodium 144 142 (136-148) mmol/L Potassium 3.4 L 3.5 (3.5-5.1) mmol/L Chloride 106 105 (98-107) mmol/L Carbon Dioxide 26.5 27.3 (21.0-32.0) mmol/L BUN 14 19 H (7.0-18.0) mg/dL Creatinine 2.2 H 2.5 H (0.8-1.3) mg/dL Est Cr Clr Drug Dosing 47.06 41.42 mL/min Estimated GFR (MDRD) 33.2 28.6 ml/min Glucose 101 117 H (74-106) mg/dL Calcium 8.0 L 8.0 L (8.5-10.1) mg/dL Total Bilirubin (0.2-1.0) mg/dL AST (15-37) IU/L ALT (14-63) IU/L Alkaline Phosphatase (46-116) U/L Total Protein (6.4-8.2) g/dL Albumin (3.4-5.0) g/dL Globulin (2.6-4.0) g/dL Albumin/Globulin Ratio (0.9-1.6) Amylase (25-115) U/L Lipase (73-393) U/L Urine Color Urine Appearance Urine pH (5.0-8.0) Ur Specific [place] (1.001-1.035) Urine Protein (NEGATIVE) mg/dL Urine Glucose (UA) (NEGATIVE) mg/dL Urine Ketones (NEGATIVE) mg/dL Urine Occult Blood (NEGATIVE) Urine Nitrite (NEGATIVE) Urine Bilirubin (NEGATIVE) Urine Urobilinogen (<2.0) EU/dL Ur Leukocyte Esterase (NEGATIVE) Urine RBC (0-2/HPF) Urine WBC (0-5/HPF) Ur Epithelial Cells (NONE-FEW) Urine Bacteria (NEGATIVE) Urine Mucus (NONE-MOD) Med Orders - Current: Current Medications Acetaminophen (Tylenol) 650 mg PO Q6H PRN PRN Reason: Pain (mild 1-3) Last Admin: 12/31/18 16:14 Dose: 650 mg Metoprolol Succinate (Toprol Xl) 50 mg PO DAILY TRAM Morphine Sulfate (Morphine) 2 mg IVPUSH Q2H PRN PRN Reason: Pain (severe 7-10) Ondansetron HCl (Zofran) 4 mg IVPUSH Q6H PRN PRN Reason: Nausea/Vomiting Oxycodone HCl (Oxycodone) 5 mg PO Q4H PRN PRN Reason: Pain (moderate 4-6) Last Admin: 12/31/18 08:06 Dose: 5 mg Sodium Chloride (Saline Flush) 10 ml FLUSH ASDIRECTED PRN PRN Reason: Keep Vein Open Sodium Chloride (Saline Flush) 2.5 ml FLUSH ASDIRECTED PRN PRN Reason: Keep Vein Open Sodium Chloride (Saline Flush) 10 ml FLUSH ASDIRECTED PRN PRN Reason: Keep Vein Open Sodium Chloride (Saline Flush) 2.5 ml FLUSH ASDIRECTED PRN PRN Reason: Keep Vein Open Discontinued Medications Sodium Chloride (Normal Saline) 1,000 mls @ 999 mls/hr IV STAT ONE Stop: 12/31/18 00:15 Last Admin: 12/30/18 23:24 Dose: 999 mls/hr Sodium Chloride (Normal Saline) 1,000 mls @ 150 mls/hr IV ASDIRECTED TRAM Last Admin: 12/31/18 01:34 Dose: 150 mls/hr Ketorolac Tromethamine (Toradol) 30 mg IVPUSH ONETIME ONE Stop: 12/30/18 23:16 Last Admin: 12/30/18 23:26 Dose: 30 mg Ondansetron HCl (Zofran) 4 mg IVPUSH ONETIME ONE Stop: 12/30/18 23:16 Last Admin: 12/30/18 23:25 Dose: 4 mg - Exam Quality Assessment: Denies: Supplemental Oxygen General: Reports: Alert, Oriented, Cooperative, No Acute Distress HEENT: Reports: Pupils Equal, Pupils Reactive, EOMI Neck: Reports: Supple, Trachea Midline Lungs: Reports: Clear to Auscultation, Normal Respiratory Effort Cardiovascular: Reports: Regular Rate, Regular Rhythm, No Murmurs GI/Abdominal Exam: Normal Bowel Sounds, Soft, Non-Tender, No Distention (Male) Exam: Deferred Rectal (Males) Exam: Deferred Back Exam: Reports: Normal Inspection, Full Range of Motion Extremities: Normal Inspection, No Pedal Edema Skin: Reports: Warm, Dry, Intact Neurological: Reports: No New Focal Deficit Psy/Mental Status: Reports: Alert, Normal Affect, Normal Mood
[2019-01-01] MEDS ORDERED: Metoprolol Succinate 50 MG Tab.ER PO SCH (09:00)
== END 2018-12-31 17:30 | disposition home or self-care (01) ==
LOC: MW.ED 22:49 → MW.MS 12-31 01:15
PROVIDERS: ADMIT Internal Medicine; ATTEND Internal Medicine
DX: N41.8 Other inflammatory diseases of prostate (principal); B96.89 Other specified bacterial agents as the cause of diseases classified elsewhere; R10.32 Left lower quadrant pain; R10.31 Right lower quadrant pain; N28.89 Other specified disorders of kidney and ureter; I10 Essential (primary) hypertension; F17.200 Nicotine dependence, unspecified, uncomplicated; Z79.899 Other long term (current) drug therapy
CPT/HCPCS: 36415; 74176; 80048; 80053; 81001; 82150; 83690; 85025; 96361; 96374; 96375; 99285; A9270; G0378; J1885; J2405; J7040; 99283

== ENCOUNTER 2022-05-07 00:09 | Emergency (ER) | payer BC ==
[2022-05-07 02:06] LABS: CARBON DIOXIDE,CO2 28.2 mmol/L (21.0-32.0)
== END 2022-05-07 02:20 | disposition home or self-care (01) ==
LOC: MW.ED 00:09
DX: H53.9 Unspecified visual disturbance (principal); I10 Essential (primary) hypertension
CPT/HCPCS: 36415; 80053; 82550; 83735; 84443; 84484; 85025; 93005; 99283

== ENCOUNTER 2022-09-01 14:59 | Emergency (ER) | payer BC ==
[2022-09-01] MEDS ORDERED: Acetaminophen 500 MG Tab PO ONE (15:12)
[2022-09-01] MEDS ORDERED: Ibuprofen 800 MG Tab PO ONE (15:12)
[2022-09-01 15:49] LABS: CORONAVIRUS COVID-19 NAA POSITIVE (NEGATIVE); INFLUENZA A NAA NEGATIVE (NEGATIVE); INFLUENZA B NAA NEGATIVE (NEGATIVE); RESPIRATORY SYNCYTIAL VIR NAA NEGATIVE (NEGATIVE)
== END 2022-09-01 16:11 | disposition home or self-care (01) ==
LOC: MW.ED 14:59
DX: U07.1 COVID-19 (principal); I10 Essential (primary) hypertension
CPT/HCPCS: 0241U; 99283; A9270